=== PATIENT | female | born 1945 | race African-American/Black ===

== ENCOUNTER 2023-07-11 04:46 | Day surgery (SDC) | payer OTHER, BC ==
[2023-07-09 16:01] VITALS: BMI 28.8
[2023-07-11 12:42] VITALS: TEMP 98.2
[2023-07-11 13:15] VITALS: BP 115/58; PULSE 67; RESP 17
== END 2023-07-11 13:16 | disposition home or self-care (01) ==
LOC: JASU-ENDO 04:46
PROVIDERS: ATTEND Internal Medicine Gastroenterology
PROC: 0DJD8ZZ Inspection of Lower Intestinal Tract, Via Natural or Artificial Opening Endoscopic (ICD-10-PCS; principal; 2023-07-11 12:00)
DX: Z12.11 Encounter for screening for malignant neoplasm of colon (principal); K57.30 Diverticulosis of large intestine without perforation or abscess without bleeding; K64.8 Other hemorrhoids
CPT/HCPCS: 82962